=== PATIENT | female | born 1930 | race Caucasian/White ===

== ENCOUNTER → 2016-04-11 | Outpatient (CLI) | payer OTHER ==
--- NOTE | 2016-04-11 15:44 | DX ---
PA and Lateral Chest Clinical Indications: Shortness of breath and weight loss in an 85-year-old female. Comparison: March 23, 2016. Findings: The lungs are clear. A calcified granuloma is seen involving the right lower lung. There i s hyperexpansion seen with flattening of the hemidiaphragms noted. Mild peribronchial thickening is n oted. The heart is mildly enlarged. Pulmonary vascularity is normal. There is mild dilatation of the aorta with prominence of the aortic knob and aortic calcification. These findings can be associated with ar terial hypertension. No pleural effusion is identified. Pleural surfaces and bony thorax are negative for acute abnormalit y. There has been no significant change from the prior study. Impression: 1. Query COPD with no superimposed acute abnormality identified. 2. 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 3. See above report for additional findings.
== END ==
LOC: BMCIMAGING 14:22
PROVIDERS: ATTEND Internal Medicine
DX: R63.4 Abnormal weight loss (principal); R06.02 Shortness of breath

== ENCOUNTER → 2016-04-24 | Outpatient (CLI) | payer OTHER ==
--- NOTE | 2016-04-24 08:58 | US ---
Ultrasound of the Abdomen, Complete History: Dysphagia. Recent weight loss. Findings: Pancreas: Homogeneous without peripancreatic fluid. Aorta: Visualized upper abdominal aorta demonstrates no aneurysm. Moderate arteriosclerotic calcified plaque formation is noted. Liver: Homogeneous in echogenicity without definite focal lesions and measures 13.7 cm in length. Th ere is normal hepatopedal flow on color flow imaging obtained. Gallbladder: There is some sludge layering within the dependent aspect of the gallbladder. There are questionable 1 mm associated nonshadowing calculi. No significant shadowing calculi, wall thickening, or significant pericholecystic fluid. At the level just above the pancreatic head the common bile du ct measures 8-9 mm in diameter with tapering to 5 mm at the level of the pancreatic head. At the port a the common bile duct measures about 3 mm. No choledocholithiasis is appreciated. Renal: Right kidney measures 10.2 cm and left kidney 10.3 cm without hydronephrosis in either kidney. Within the lower pole of the right kidney there is a 1.8 cm cyst. Spleen: Homogeneous and 9.1 cm in length without splenomegaly. IVC: Normal Lung bases: No effusions. Impression: 1. Gallbladder sludge layering within the gallbladder. There are questionable 1 mm associated calculi . 2. Mild dilatation of the common bile duct just above the pancreatic head. This is probably normal fo r a patient of this age. 3. Incidental cyst lower pole right kidney.
== END ==
LOC: BMCIMAGING 07:36
PROVIDERS: ATTEND Internal Medicine
DX: K83.8 Other specified diseases of biliary tract (principal); N28.1 Cyst of kidney, acquired

== ENCOUNTER → 2016-07-02 | Outpatient (CLI) | payer OTHER | LOC: SBRMNEURO 20:00 | PROVIDERS: ATTEND Psychiatry & Neurology Sleep Medicine | DX: G47.31 Primary central sleep apnea (principal) ==

== ENCOUNTER → 2016-09-03 | Outpatient (CLI) | payer OTHER | LOC: SBRMNEURO 21:00 | PROVIDERS: ATTEND Psychiatry & Neurology Sleep Medicine | DX: G47.31 Primary central sleep apnea (principal); G47.33 Obstructive sleep apnea (adult) (pediatric); G47.61 Periodic limb movement disorder ==

== ENCOUNTER → 2017-02-26 | Outpatient (CLI) | payer OTHER | LOC: BMCIMAGING 14:16 | PROVIDERS: ATTEND Orthopaedic Surgery Hand Surgery | DX: M12.831 Other specific arthropathies, not elsewhere classified, right wrist (principal) ==

== ENCOUNTER → 2017-05-13 | Outpatient (CLI) | payer OTHER | LOC: CIMAGING 10:32 | PROVIDERS: ATTEND Internal Medicine | DX: R91.1 Solitary pulmonary nodule (principal); J47.9 Bronchiectasis, uncomplicated; I51.7 Cardiomegaly | CPT/HCPCS: 71250-PO ==

== ENCOUNTER → 2017-09-02 | Outpatient (CLI) | payer OTHER | LOC: BMCIMAGING 12:57 | PROVIDERS: ATTEND Internal Medicine | DX: S90.32XA Contusion of left foot, initial encounter (principal); R22.42 Localized swelling, mass and lump, left lower limb ==